=== PATIENT | male | born 1955 | race Caucasian/White ===

== ENCOUNTER 2022-03-18 09:07 | Outpatient (CLI) | payer MEDICARE, OTHER, SELFPAY ==
[2022-03-18 14:35] LABS: Chloride* 102 mmol/L (96-114); Sodium* 138 mmol/L (135-149)
[2022-03-18 14:36] LABS: Potassium* 4.7 mmol/L (3.6-5.1)
[2022-03-18 14:38] LABS: Blood Urea Nitrogen* 10 mg/dL (7-30); Carbon Dioxide* 28 mmol/L (20-32); Creatinine* 0.9 mg/dL (0.5-1.5); Estimated Glomerular Filt Rate 93 ml/min
[2022-03-18 14:39] LABS: Calcium* 9.8 mg/dL (8.4-10.6); Glucose* 99 mg/dL (60-115)
[2022-03-18 15:07] LABS: PSA Screen* 1.11 ng/mL (0.10-4.00)
[2022-03-18 15:26] LABS: Vitamin B12* 379 pg/mL (243-894)
== END 2022-03-18 09:08 | disposition home or self-care (01) ==
PROVIDERS: PCP Family Medicine; Visit Provider Family Medicine
DX: Z00.00 Encounter for general adult medical examination without abnormal findings (principal); Z12.5 Encounter for screening for malignant neoplasm of prostate; Z13.1 Encounter for screening for diabetes mellitus; Z13.29 Encounter for screening for other suspected endocrine disorder; Z13.21 Encounter for screening for nutritional disorder; N52.9 Male erectile dysfunction, unspecified; K57.90 Diverticulosis of intestine, part unspecified, without perforation or abscess without bleeding; Z63.79 Other stressful life events affecting family and household
CPT/HCPCS: 80048; 82607; 84153; 84443

== ENCOUNTER 2022-07-11 12:32 | Outpatient (CLI) | payer MEDICARE, OTHER, SELFPAY ==
--- NOTE | 2022-07-11 13:00 | CRLHL7_ITS ---
For Patients: As a result of the Century Cures Act, medical imaging exams and procedure reports are released immediately into your electronic medical record. You may view this report before your referring provider. If you have questions, please contact your health care provider. INDICATION: Chronic sinusitis. TECHNIQUE: Noncontrast CT images acquired through the paranasal sinuses. COMPARISON: None. FINDINGS: No air-fluid levels to suggest acute sinusitis. Mild lobulated mucosal thickening in the maxillary sinuses. Small to moderate lobulated opacity within the anterior right maxillary antrum likely represents a retention cyst or polyp. The ethmoid infundibula are widely patent. Minimal mucosal thickening in the frontal recesses. The frontal sinuses are otherwise clear. Mild mucosal thickening in the anterior and posterior ethmoid air cells. Minimal mucosal thickening in the sphenoid sinuses. The sphenoethmoidal recesses are widely patent. Mild sinusoidal nasal septal deviation with rightward bowing of the anterior septum and leftward bowing of the posterior septum. Small 2 mm leftward directed septal spur. Sue bullosa right middle turbinate. No nasal cavity masses. Trace left mastoid fluid. IMPRESSION: 1. Mild lobulated mucosal thickening in the maxillary sinuses. Small to moderate lobulated opacity within the anterior right maxillary antrum likely represents a retention cyst or polyp. No air-fluid levels to suggest acute sinusitis. 2. Mild sinusoidal nasal septal deviation. Please note that all CT scans at this facility use dose modulation, iterative reconstruction, and/or weight-based dosing when appropriate to reduce radiation dose to as low as reasonably achievable. Dictated by Jens Lawrence MD @ 07/12/2022 1:01:09 PM (Electronically Signed)
== END 2022-07-11 12:33 | disposition home or self-care (01) ==
LOC: CT 12:33
PROVIDERS: PCP Family Medicine; Visit Provider Otolaryngology
DX: J32.9 Chronic sinusitis, unspecified (principal); J32.0 Chronic maxillary sinusitis; J34.2 Deviated nasal septum
CPT/HCPCS: 70486

== ENCOUNTER 2024-02-05 08:33 | Outpatient (CLI) | payer MEDICARE, OTHER, SELFPAY ==
[2024-02-05 12:08] LABS: Chloride* 103 mmol/L (96-114)
[2024-02-05 12:09] LABS: Potassium* 4.3 mmol/L (3.6-5.1); Sodium* 136 mmol/L (135-149)
[2024-02-05 12:11] LABS: Cholesterol* 205 mg/dL (90-199); Creatinine* 0.8 mg/dL (0.5-1.5); Estimated Glomerular Filt Rate 96 ml/min
[2024-02-05 12:12] LABS: Anion Gap 4 mEq/L (7-15); Blood Urea Nitrogen* 13 mg/dL (7-30); Calcium* 9.4 mg/dL (8.4-10.6); Carbon Dioxide* 29 mmol/L (20-32); Glucose* 117 mg/dL (60-115); HDL Cholesterol* 59 mg/dL (>=40); LDL Cholesterol Calculated 122 mg/dL (<100); Triglycerides* 122 mg/dL (40-149)
[2024-02-05 12:42] LABS: PSA Screen* 0.62 ng/mL (0.10-4.00)
== END 2024-02-05 08:34 | disposition home or self-care (01) ==
PROVIDERS: PCP Family Medicine; Visit Provider Family Medicine
DX: Z12.5 Encounter for screening for malignant neoplasm of prostate (principal); Z13.220 Encounter for screening for lipoid disorders; Z13.228 Encounter for screening for other metabolic disorders
CPT/HCPCS: 80048; 80061; G0103

== ENCOUNTER 2025-02-06 08:26 | Outpatient (CLI) | payer MEDICARE, OTHER, SELFPAY | END 2025-02-06 08:27 | disposition home or self-care (01) | PROVIDERS: PCP Family Medicine; Visit Provider Family Medicine | DX: Z13.0 Encounter for screening for diseases of the blood and blood-forming organs and certain disorders involving the immune mechanism (principal); Z12.5 Encounter for screening for malignant neoplasm of prostate | CPT/HCPCS: 80048; G0103 ==

== ENCOUNTER 2025-03-07 07:33 | Outpatient (CLI) | payer MEDICARE, OTHER, SELFPAY ==
[2025-03-07 08:33] VITALS: BP 152/78; PULSE 88; RESP 16
--- NOTE | 2025-03-07 10:36 | P.STN_ITS ---
Stress Test Note Date Date Seen: 03/07/25 Date of test: 03/07/25 Providers Primary care provider: Tony Álvarez Stress test physician: Bre Bryant Stress Test Note Stress test ordered: Exercise Stress Test Indication for test: Dyspnea Stress test medicine: None Results discussion: Resting EKG: Sinus rhythm, 74 beats per minute. Resting blood pressure: 124/82 Stress test: Patient has consented on ordered treadmill exercise stress test and does agree to proceed. Standard [place] protocol is followed. Patient was able to exercise to 6 minutes, stopping due to left greater than right hamstring discomfort. Patient had no shortness of breath, no chest pain, no other symptom s. He achieved a exercise equivalent of 7.3 Mets. He had a maximum heart rate of 142 beats per minute which was 111% of a calculated target heart rate of 127. He had a maximum blood pressure of 188/74 right in recovery. He had a rate pressure product of 26,696. Patient had occasional PVC seen in exercise but none in recovery. There was no diagnostic EKG changes indicative of ischemia. Patient did have a mild hypertensive response to exercise, we did review this. Impression: Subjectively negative, objectively negative treadmill exercise stress test, mild hypertensive response. Follow up suggested: Patient is advised to follow up with his primary, they can watch his blood pressure overall to make sure that there is no hypertension. If there is question of hypertension, they can discuss initiating treatment with medication. He can review this with his primary provider. Patient is discharged from the stress test in stable condition.
== END 2025-03-07 07:34 | disposition home or self-care (01) ==
LOC: STRESS 07:34
PROVIDERS: PCP Family Medicine; Visit Provider Family Medicine
DX: R06.09 Other forms of dyspnea (principal)
CPT/HCPCS: 93016; 93017